=== PATIENT | female | born 1960 | race Two or more races ===

== ENCOUNTER 2019-09-06 06:25 | Day surgery (SDC) | payer MEDICARE, OTHER ==
[2019-09-06] MEDS ORDERED: LIDOCAINE HCL/PF 1% 30 ML SDV ONE (06:49)
[2019-09-06] MEDS ORDERED: MIDAZOLAM HCL 2 MG/2ML VIAL ONE (07:03)
[2019-09-06] MEDS ORDERED: FLUMAZENIL 0.5 MG VIAL ONE (07:03)
[2019-09-06] MEDS ORDERED: SEVOFLURANE 250 ML BOTTLE IH ONE (07:04)
== END 2019-09-06 09:05 | disposition home or self-care (01) ==
LOC: DS 06:25
PROVIDERS: ATTEND Specialist
DX: G56.01 Carpal tunnel syndrome, right upper limb (principal); I10 Essential (primary) hypertension; E78.5 Hyperlipidemia, unspecified; E11.9 Type 2 diabetes mellitus without complications; F32.9 Major depressive disorder, single episode, unspecified; J45.909 Unspecified asthma, uncomplicated; Z79.84 Long term (current) use of oral hypoglycemic drugs; Z79.899 Other long term (current) drug therapy; Z98.890 Other specified postprocedural states
CPT/HCPCS: 64721; 82962; A6402; J2250; J3490 ×2